=== PATIENT | female | born 1960 | race Caucasian/White ===

== ENCOUNTER 2019-03-08 17:17 | Emergency (ER) | payer BC, OTHER ==
[~2019-03-08] VITALS: Ht 160 cm; Wt 86.4 kg
[~2019-03-08 17:17] MED LIST: ACYC5CRE2 TP; ATEN-169 PO; CYCL-394 PO; DET2LAC PO; DIPH-423 PO; HYDR-3972 PO; IMO2C PO; LEVO125T69 PO; OMEG1CAP PO; PRED20TA PO; PREG100C24 PO; SUCR1ORA12; [UNRECOGNIZED DRUG - CODE] PO; hyoscyamine; lisinopril
[2019-03-08 17:25] VITALS: BP 190/118
[2019-03-08] MEDS ORDERED: HYDR-4353 PO (18:10)
[2019-03-08] MEDS ORDERED: ketorolac trometh. 30mg/ml inj. IM ONE (18:10)
[2019-03-08] MEDS ORDERED: HYDROcodone/acetaminophen 10/325mg tab PO ONE (18:10)
[2019-03-08] MEDS ORDERED: orphenadrine citrate 60mg/2ml inj. IM ONE (18:10)
[2019-03-08] MEDS ORDERED: ORPH100T2 PO (18:10)
== END 2019-03-08 18:55 | disposition home or self-care (01) ==
LOC: ER 17:18
DX: M54.10 Radiculopathy, site unspecified (principal); M25.511 Pain in right shoulder; I10 Essential (primary) hypertension; M19.90 Unspecified osteoarthritis, unspecified site; G89.29 Other chronic pain; M79.7 Fibromyalgia; Z90.49 Acquired absence of other specified parts of digestive tract; Z90.710 Acquired absence of both cervix and uterus; Z88.1 Allergy status to other antibiotic agents; Z79.899 Other long term (current) drug therapy
CPT/HCPCS: 73030; 96372; 99284; J1885; J2360

== ENCOUNTER 2019-10-30 19:54 | Emergency (ER) | payer BC, OTHER ==
[~2019-10-30] VITALS: Ht 160 cm; Wt 84.1 kg
[~2019-10-30 19:54] MED LIST changes: +ORPH100T2 PO
[2019-10-30] MEDS ORDERED: ondansetron 4mg rapidly disintigrating tab PO ONE (20:35)
[2019-10-30] MEDS ORDERED: HYDROcodone/acetaminophen 10/325mg tab PO ONE (20:35)
[2019-10-30 21:34] VITALS: BP 190/115
== END 2019-10-30 21:37 | disposition home or self-care (01) ==
LOC: ER 19:55
DX: S93.492A Sprain of other ligament of left ankle, initial encounter (principal); S90.32XA Contusion of left foot, initial encounter; I10 Essential (primary) hypertension; M19.90 Unspecified osteoarthritis, unspecified site; G89.29 Other chronic pain; Z90.49 Acquired absence of other specified parts of digestive tract; Z72.89 Other problems related to lifestyle; Z88.1 Allergy status to other antibiotic agents; Z88.5 Allergy status to narcotic agent; Z91.010 Allergy to peanuts; Z79.899 Other long term (current) drug therapy; X50.1XXA Overexertion from prolonged static or awkward postures, initial encounter; Y93.89 Activity, other specified; Y92.89 Other specified places as the place of occurrence of the external cause; Y99.8 Other external cause status
CPT/HCPCS: 73610; 99284

== ENCOUNTER 2021-07-23 14:53 | Emergency (ER) | payer BC, OTHER ==
[~2021-07-23] VITALS: Ht 160 cm; Wt 79.5 kg
[~2021-07-23 14:53] MED LIST changes: -OMEG1CAP PO; +OMEG1CAP61 PO
[2021-07-23 15:49] VITALS: BP 183/89
--- NOTE | 2021-07-23 19:27 | NUR ---
vas at bedside
== END 2021-07-23 20:54 | disposition home or self-care (01) ==
LOC: ER 14:54
DX: M71.21 Synovial cyst of popliteal space [Baker], right knee (principal); I10 Essential (primary) hypertension; G89.29 Other chronic pain; Z88.1 Allergy status to other antibiotic agents; Z88.5 Allergy status to narcotic agent; Z91.010 Allergy to peanuts; Z79.899 Other long term (current) drug therapy
CPT/HCPCS: 93971; 99284

== ENCOUNTER 2023-07-26 11:29 | Emergency (ER) | payer BC, OTHER ==
[~2023-07-26] VITALS: Ht 162.6 cm; Wt 83.2 kg
[~2023-07-26 11:29] MED LIST changes: -ORPH100T2 PO; +ORPH100T4 PO
[2023-07-26 12:50] LABS: BASOPHILS % (AUTO) 0.6 % (0-1); EOSINOPHILS # (AUTO) 0.1 X10'3 (0-0.9); EOSINOPHILS % (AUTO) 2.1 % (0-6); HEMATOCRIT 40.4 % (35.0-45.0); HEMOGLOBIN 13.9 g/dl (12.0-16.0); LYMPHOCYTES # (AUTO) 2.2 X10'3 (1.1-4.8); LYMPHOCYTES % (AUTO) 30.4 % (21-51); MEAN CORPUSCULAR HGB CONC 34.5 g/dL (33.0-36.5); MEAN CORPUSCULAR VOLUME 92.7 FL (78-98); MEAN PLATELET VOLUME 7.3 FL (7.4-10.4); MONOCYTES # (AUTO) 0.4 X10'3 (0-0.9); MONOCYTES % (AUTO) 5.2 % (2-12); NEUTROPHILS # (AUTO) 4.5 X10'3 (1.8-7.7); NEUTROPHILS % (AUTO) 61.7 % (42-75); PLATELET COUNT 289 X10'3 (140-440); RED BLOOD COUNT 4.36 X10'6 (4.20-5.60); RED CELL DISTRIBUTION WIDTH 12.6 % (11.5-14.5); WHITE BLOOD COUNT 7.2 X10'3 (4.5-11.0)
[2023-07-26 13:17] LABS: ALANINE AMINOTRANSFERASE 30 U/L (12-78); ALBUMIN 3.5 G/DL (3.4-5.0); ALKALINE PHOSPHATASE 50 IU/L (46-116); ANION GAP 10 (8-16); ASPARTATE AMINO TRANSFERASE 16 U/L (10-37); BILIRUBIN,TOTAL 0.3 MG/DL (0.1-1.0); BLOOD UREA NITROGEN 9 MG/DL (7-18); CALCIUM 8.7 MG/DL (8.5-10.1); CHLORIDE 100 MMOL/L (99-107); GLUCOSE 89 MG/DL (70-104); POTASSIUM 3.5 MMOL/L (3.5-5.1); SODIUM 138 MMOL/L (135-145); TOTAL CARBON DIOXIDE 27.7 MMOL/L (24-32); TOTAL PROTEIN 7.1 G/DL (6.4-8.2); eCRCL 101 ML/MIN; eGFR > 90 ML/MIN
[2023-07-26 13:25] LABS: PRO BRAIN NATRIURETIC PEPTIDE 165 PG/ML (0-125)
[2023-07-26] MEDS: LORazepam 1 MG tablet PO ONE (15:57)
[2023-07-26] MEDS: lisinopril 10 MG tablet PO ONE ×2 (15:58→20:25)
[2023-07-26] MEDS: metoprolol tartrate 50mg tablet PO ONE (15:59)
[2023-07-26] MEDS: hydrALAZINE 20mg/ml inj. IV ONE ×3 (15:59→18:03)
[2023-07-26] MEDS ORDERED: METO-395 PO (20:29)
[2023-07-26] MEDS ORDERED: INDA1.255 PO (20:29)
[2023-07-26 20:43] VITALS: BP 148/83; PULSE 78; RESP 11; TEMP 98.7; O2SAT 94
== END 2023-07-26 20:44 | disposition home or self-care (01) ==
LOC: ER 11:30
DX: I10 Essential (primary) hypertension (principal); M19.90 Unspecified osteoarthritis, unspecified site; Z88.8 Allergy status to other drugs, medicaments and biological substances; Z88.1 Allergy status to other antibiotic agents; Z91.010 Allergy to peanuts; Z90.49 Acquired absence of other specified parts of digestive tract; Z90.710 Acquired absence of both cervix and uterus
CPT/HCPCS: 36415; 80053; 83880; 84484; 85025; 93005; 96374; 96376; 99285; J0360

== ENCOUNTER 2023-07-28 15:48 | Inpatient (IN) | payer BC, OTHER ==
[~2023-07-28] VITALS: Ht 160 cm; Wt 84.0 kg
[~2023-07-28 15:48] MED LIST changes: +INDA1.255 PO; +METO-395 PO
[2023-07-28] MEDS: hydrALAZINE 20mg/ml inj. IV ONE (21:10)
[2023-07-28] MEDS: LORazepam 1 MG tablet PO ONE (21:39)
[2023-07-28] MEDS ORDERED: ondansetron/PF 4mg/2ml inj IV PRN (21:40)
[2023-07-28] MEDS ORDERED: magnesium Cl slow-release 64mg tablet PO PRN (21:40)
[2023-07-28] MEDS ORDERED: potassium Cl 20 mEq SR tablet PO PRN (21:40)
[2023-07-28] MEDS ORDERED: magnesium 2GM in 50ml NS 50 ML IV PRN (21:40)
[2023-07-28] MEDS ORDERED: morphine 2 MG/ML inj. syringe IV PRN ×2 (21:40)
[2023-07-28] MEDS ORDERED: magnesium 4gm in 100ml NS 100 ML IV PRN (21:40)
[2023-07-28] MEDS ORDERED: potassium Cl 40MEQ/1/2NS 520ml 520 ML IV PRN (21:40)
[2023-07-28] MEDS ORDERED: mag hydrox/Alum hydrox/simeth 30ml oral suspension PO PRN (21:40)
[2023-07-28] MEDS ORDERED: acetaminophen 325mg tablet PO PRN (21:40)
[2023-07-28 21:59] LABS: MAGNESIUM 1.9 MG/DL (1.5-2.4); POTASSIUM 3.5 MMOL/L (3.5-5.1)
[2023-07-28] MEDS ORDERED: HYDROcodone/acetaminophen 10/325mg tab PO PRN (22:00)
[2023-07-28] MEDS ORDERED: cyclobenzaprine 10mg tablet PO PRN (22:00)
[2023-07-28] MEDS ORDERED: ORPHENADRINE CITRATE PO PRN (22:00)
[2023-07-28 22:22] LABS: THYROID STIMULATING HORMONE 0.14 ulU/ml (0.34-4.50)
[2023-07-29] VITALS (13 sets, daily range): BP systolic 143–202; BP diastolic 69–120; PULSE 68–82; RESP 11–20; TEMP 97.2–98.6; O2SAT 73–97
[2023-07-29] MEDS: diphenhydrAMINE 25mg capsule PO SCH (02:00)
[2023-07-29] MEDS ORDERED: LIRA0.6P SUBCUT (02:38)
[2023-07-29] MEDS: K and/or MAG REPLACEMENT MC SCH (08:00)
[2023-07-29] MEDS: OMEGA ACID ETHYL ESTERS PO SCH (08:00)
[2023-07-29] MEDS ORDERED: acyclovir 5% 2 GM cream TP SCH (08:00)
[2023-07-29] MEDS: tolterodine 2mg SR capsule (24hr) PO SCH (08:00)
[2023-07-29] MEDS ORDERED: INDAPAMIDE PO SCH (08:00)
[2023-07-29] MEDS ORDERED: metoprolol succinate 25mg (24-HOUR) SR. Tablet PO SCH (08:00)
[2023-07-29] MEDS ORDERED: VALACYCLOVIR HCL 1000 MG PO SCH (08:00)
[2023-07-29 08:10] LABS: BASOPHILS % (AUTO) 0.7 % (0-1); EOSINOPHILS # (AUTO) 0.1 X10'3 (0-0.9); EOSINOPHILS % (AUTO) 2.2 % (0-6); HEMATOCRIT 38.2 % (35.0-45.0); HEMOGLOBIN 13.5 g/dl (12.0-16.0); LYMPHOCYTES # (AUTO) 1.7 X10'3 (1.1-4.8); LYMPHOCYTES % (AUTO) 27.4 % (21-51); MEAN CORPUSCULAR HEMOGLOBIN 32.4 PG (27.0-31.0); MEAN CORPUSCULAR HGB CONC 35.3 g/dL (33.0-36.5); MEAN CORPUSCULAR VOLUME 91.8 FL (78-98); MEAN PLATELET VOLUME 7.5 FL (7.4-10.4); MONOCYTES # (AUTO) 0.5 X10'3 (0-0.9); MONOCYTES % (AUTO) 7.7 % (2-12); NEUTROPHILS # (AUTO) 3.9 X10'3 (1.8-7.7); PLATELET COUNT 288 X10'3 (140-440); RED BLOOD COUNT 4.16 X10'6 (4.20-5.60); RED CELL DISTRIBUTION WIDTH 12.4 % (11.5-14.5); WHITE BLOOD COUNT 6.3 X10'3 (4.5-11.0)
[2023-07-29 08:15] LABS: ALANINE AMINOTRANSFERASE 31 U/L (12-78); ALBUMIN 3.1 G/DL (3.4-5.0); ALBUMIN/GLOBULIN RATIO 0.9 (1.1-1.5); ALKALINE PHOSPHATASE 44 IU/L (46-116); ANION GAP 7 (8-16); ASPARTATE AMINO TRANSFERASE 17 U/L (10-37); BILIRUBIN,TOTAL 0.4 MG/DL (0.1-1.0); BLOOD UREA NITROGEN 7 MG/DL (7-18); BUN/CREATININE RATIO 13.2 (10.0-20.0); CALCIUM 8.1 MG/DL (8.5-10.1); CHLORIDE 103 MMOL/L (99-107); CHOL/HDL RATIO 4.5 (0.00-4.99); CHOLESTEROL 230 MG/DL (0-200); CREATININE 0.53 MG/DL (0.40-0.90); GLUCOSE 107 MG/DL (70-104); HDL CHOLESTEROL 51 MG/DL (35-60); LDL CHOLESTEROL 145 MG/DL (50-100); MAGNESIUM 1.9 MG/DL (1.5-2.4); SODIUM 137 MMOL/L (135-145); TOTAL CARBON DIOXIDE 26.6 MMOL/L (24-32); TOTAL PROTEIN 6.5 G/DL (6.4-8.2); TRIGLYCERIDES 176 MG/DL (20-135); eCRCL 91 ML/MIN; eGFR > 90 ML/MIN
[2023-07-29 08:19] LABS: POTASSIUM 2.9 MMOL/L (3.5-5.1)
[2023-07-29] MEDS ORDERED: HYDROchlorothiazide 12.5mg capsule PO SCH (08:35)
[2023-07-29] MEDS: potassium Cl 20 mEq SR tablet PO PRN (08:47)
[2023-07-29] MEDS: atenolol 50mg tablet PO SCH (08:48)
[2023-07-29] MEDS: docusate sod 100mg capsule PO SCH (08:49)
[2023-07-29] MEDS: levoTHYROXINE 125mcg tablet PO SCH (08:49)
[2023-07-29] MEDS ORDERED: CHOL1CAP16 (11:42)
[2023-07-29] MEDS ORDERED: ESTR2TAB6 (11:42)
[2023-07-29] MEDS ORDERED: SUMA50TA17 PO ×2 (11:42→15:46)
[2023-07-29] MEDS ORDERED: ACET-3068 PO (11:42)
[2023-07-29] MEDS: HYDROcodone/acetaminophen 10/325mg tab PO PRN (14:23)
[2023-07-29] MEDS ORDERED: LOSA50TA64 PO (15:46)
[2023-07-29] MEDS ORDERED: POTA-207 PO (15:48)
[2023-07-29] MEDS ORDERED: HYDR25TA5 PO (15:48)
[2023-07-29] MEDS: hydrALAZINE 20mg/ml inj. IV PRN (20:57)
[2023-07-30 02:00] VITALS: BP 159/82; PULSE 86; RESP 20; TEMP 97.9
[2023-07-30 06:00] VITALS: BP 148/84; PULSE 75; RESP 16; TEMP 98.6; O2SAT 98
[2023-07-30 06:41] LABS: BASOPHILS % (AUTO) 0.4 % (0-1); EOSINOPHILS # (AUTO) 0.1 X10'3 (0-0.9); EOSINOPHILS % (AUTO) 2.3 % (0-6); HEMATOCRIT 40.7 % (35.0-45.0); HEMOGLOBIN 14.1 g/dl (12.0-16.0); LYMPHOCYTES # (AUTO) 2.2 X10'3 (1.1-4.8); LYMPHOCYTES % (AUTO) 33.9 % (21-51); MEAN CORPUSCULAR HEMOGLOBIN 32.3 PG (27.0-31.0); MEAN CORPUSCULAR HGB CONC 34.7 g/dL (33.0-36.5); MEAN PLATELET VOLUME 7.6 FL (7.4-10.4); MONOCYTES # (AUTO) 0.5 X10'3 (0-0.9); MONOCYTES % (AUTO) 7.2 % (2-12); NEUTROPHILS # (AUTO) 3.6 X10'3 (1.8-7.7); NEUTROPHILS % (AUTO) 56.2 % (42-75); PLATELET COUNT 301 X10'3 (140-440); RED BLOOD COUNT 4.37 X10'6 (4.20-5.60); RED CELL DISTRIBUTION WIDTH 12.6 % (11.5-14.5); WHITE BLOOD COUNT 6.3 X10'3 (4.5-11.0)
[2023-07-30 06:59] LABS: ALANINE AMINOTRANSFERASE 30 U/L (12-78); ALBUMIN 3.2 G/DL (3.4-5.0); ALBUMIN/GLOBULIN RATIO 0.9 (1.1-1.5); ALKALINE PHOSPHATASE 42 IU/L (46-116); ANION GAP 9 (8-16); ASPARTATE AMINO TRANSFERASE 12 U/L (10-37); BILIRUBIN,TOTAL 0.3 MG/DL (0.1-1.0); BLOOD UREA NITROGEN 9 MG/DL (7-18); CALCIUM 8.7 MG/DL (8.5-10.1); CHLORIDE 104 MMOL/L (99-107); GLUCOSE 95 MG/DL (70-104); MAGNESIUM 1.8 MG/DL (1.5-2.4); POTASSIUM 3.7 MMOL/L (3.5-5.1); SODIUM 137 MMOL/L (135-145); TOTAL CARBON DIOXIDE 23.6 MMOL/L (24-32); TOTAL PROTEIN 6.8 G/DL (6.4-8.2); eCRCL 80 ML/MIN; eGFR > 90 ML/MIN
[2023-07-30] MEDS: losartan 50mg tablet PO SCH (07:21)
[2023-07-30 07:34] VITALS: RESP 16; O2SAT 98
[2023-07-30] MEDS: estradiol 1mg tablet PO SCH (10:28)
[2023-07-30] MEDS: potassium Cl 20 mEq SR tablet PO SCH (10:29)
[2023-07-30 11:00] VITALS: BP 157/90; PULSE 74; RESP 12; TEMP 98.6; O2SAT 99
[2023-07-30 16:12] LABS: HBSAG SCREEN Negative (Negative); HEP B CORE AB, IGM Negative (Negative); HEP B CORE AB, TOT Negative (Negative)
== END 2023-07-30 12:58 | disposition home or self-care (01) | DRG 305 ==
LOC: ER 15:49 → ED HOLD 21:48 → EDBEDREQ 07-29 00:16 → PCU 3S 07-29 01:15
PROVIDERS: ADMIT Surgery Surgical Critical Care; ATTEND Internal Medicine
DX: I16.0 Hypertensive urgency (principal); I10 Essential (primary) hypertension; E03.9 Hypothyroidism, unspecified; E11.9 Type 2 diabetes mellitus without complications; F41.9 Anxiety disorder, unspecified; M79.7 Fibromyalgia; Z90.710 Acquired absence of both cervix and uterus; Z90.49 Acquired absence of other specified parts of digestive tract; Z88.1 Allergy status to other antibiotic agents; Z88.8 Allergy status to other drugs, medicaments and biological substances; Z88.6 Allergy status to analgesic agent; Z91.010 Allergy to peanuts; Z79.899 Other long term (current) drug therapy
CPT/HCPCS: 36415; 70450; 71045; 80053; 80061; 82948; 83036; 83735; 84132; 84443; 85025; 86704; 86705; 87081; 87340; 97161; 97530; 99285; G0378; J0360; J7040; Q0163